=== PATIENT | male | born 1965 | race Two or more races ===

== ENCOUNTER 2023-07-02 12:53 | Inpatient (IN) | payer MEDICARE, OTHER ==
[~2023-07-02] VITALS: Ht 177.8 cm; Wt 101.2 kg
[2023-07-02] MEDS ORDERED: TERB30CR8 TP (15:00)
[2023-07-02] MEDS ORDERED: POVI3780 TP (15:00)
[2023-07-02] MEDS ORDERED: MULT-447 PO (15:00)
[2023-07-02] MEDS ORDERED: METO25TA3 PO (15:00)
[2023-07-02] MEDS ORDERED: APIX5TAB PO (15:00)
[2023-07-02] MEDS ORDERED: ASCO-352 PO (15:00)
[2023-07-02] MEDS ORDERED: METF-440 PO (15:00)
[2023-07-02] MEDS ORDERED: PRED20TA PO (15:00)
[2023-07-02] MEDS ORDERED: LEVE500T9 PO (15:00)
[2023-07-02] MEDS ORDERED: ACET-868 PO (15:00)
[2023-07-02] MEDS ORDERED: [UNRECOGNIZED DRUG - CODE] TP (15:00)
[2023-07-02] MEDS ORDERED: INSU100V27 SQ (15:00)
[2023-07-02] MEDS ORDERED: ZINC56.713 TP (15:00)
[2023-07-02] MEDS ORDERED: AMMO225L14 TP (15:00)
[2023-07-02] MEDS ORDERED: OMEP20CA15 PO (15:00)
[2023-07-02 16:47] LABS: BASOPHILS % (AUTO) 0.3 % (0.0-2.0); EOSINOPHILS # (AUTO) 0.1 K/uL (0.0-0.7); EOSINOPHILS % (AUTO) 1.1 % (0.0-6.0); HEMATOCRIT 36 % (39-51); LYMPHOCYTES # (AUTO) 1.7 K/uL (0.8-4.8); LYMPHOCYTES % (AUTO) 18.1 % (20.0-44.0); MEAN CORPUSCULAR HEMOGLOBIN 25 PG (26.0-33.0); MEAN CORPUSCULAR HGB CONC 31 g/dl (31.0-36.0); MEAN CORPUSCULAR VOLUME 82 fL (80-96); MONOCYTES # (AUTO) 0.9 K/uL (0.1-1.30); MONOCYTES % (AUTO) 9.7 % (2.0-12.0); NEUTROPHILS # (AUTO) 6.6 K/uL (1.8-8.9); NEUTROPHILS % (AUTO) 70.8 % (43.0-81.0); PLATELET COUNT (AUTO) 507 K/uL (150-450); RED BLOOD CELL COUNT(AUTO) 4.33 MIL/uL (4.5-6.0); RED CELL DISTRIBUTION WIDTH 19.3 % (11.5-15.0); WHITE BLOOD COUNT (AUTO) 9.4 K/uL (4.3-11.0)
[2023-07-02 17:05] LABS: ALANINE AMINOTRANSFERASE 52 U/L (12-78); ALBUMIN 2.7 g/dL (3.4-5.0); ALCOHOL, BLOOD < 3 mg/dL (0-10); ALKALINE PHOSPHATASE 87 U/L (46-116); ASPARTATE AMINOTRANSFERASE 28 U/L (15-37); BILIRUBIN,DIRECT 0.1 mg/dL (0.0-0.2); BILIRUBIN,TOTAL 0.4 mg/dL (0.2-1.0); CARBON DIOXIDE 27 mmol/L (21-32); CHLORIDE 101 mmol/L (98-107); CREATININE 0.8 mg/dL (0.6-1.3); GLUCOSE 91 mg/dL (74-106); POTASSIUM 3.2 mmol/L (3.5-5.1); SODIUM SERUM 138 mmol/L (136-145); TOTAL PROTEIN, SERUM 7.7 g/dL (6.4-8.2); UREA NITROGEN, BLOOD 10 mg/dL (7-18)
[2023-07-02 17:06] LABS: ACETAMINOPHEN 0 ug/ml (10-30); SALICYLATE 1.5 mg/dL (2.8-20.0)
[2023-07-02 20:46] LABS: APPEARANCE,URINE CLEAR (CLEAR); BILIRUBIN,URINE NEGATIVE (NEGATIVE); BLOOD, URINE TRACE-INTA Ery/uL (NEGATIVE); COLOR,URINE YELLOW (YELLOW); KETONES,URINE NEGATIVE (NEGATIVE); LEUKOCYTE ESTERASE ,URINE NEGATIVE (NEGATIVE); NITRITE, URINE NEGATIVE (NEGATIVE); PROTEIN,URINE NEGATIVE (NEGATIVE); UGLUCOSE NEGATIVE (NEGATIVE); UROBILINOGEN,URINE 0.2 EU/dL (0.2)
[2023-07-02 20:57] LABS: ADD URINE CULTURE NO; BACTERIA,URINE None seen /HPF (None Seen); SQUAMOUS EPITHELIAL CELL,UR 0-2 /HPF (None Seen); WBC,URINE 0-2 /HPF (0-3)
[2023-07-02 21:05] LABS: AMPHETAMINE, URINE NEGATIVE (NEGATIVE); BARBITURATE, URINE NEGATIVE (NEGATIVE); BENZODIAZEPINE, URINE NEGATIVE (NEGATIVE); CANNABINOID, URINE NEGATIVE (NEGATIVE); COCCAINE, URINE NEGATIVE (NEGATIVE); OPIATE, URINE NEGATIVE (NEGATIVE); PHENCYCLIDINE SCREEN,URINE NEGATIVE (NEGATIVE)
[2023-07-02] MEDS ORDERED: POTASSIUM CHLORIDE 20 MEQ TAB.PRT.SR PO ONE ×2 (22:00→22:15)
[2023-07-03] MEDS ORDERED: MAG HYDROX/AL HYDROX/SIMETH 30 ML UDC PO PRN (05:00)
[2023-07-03] MEDS ORDERED: MAGNESIUM HYDROXIDE 30 ML UDC PO PRN (05:00)
[2023-07-03] MEDS ORDERED: ZOLPIDEM TARTRATE 5 MG TABLET PO PRN (05:00)
[2023-07-03] MEDS ORDERED: LORAZEPAM 1 MG TABLET PO PRN (05:00)
[2023-07-03] MEDS ORDERED: ACETAMINOPHEN 325 MG TABLET PO PRN ×2 (05:00→11:00)
[2023-07-03] MEDS ORDERED: BLOOD SUGAR DIAGNOSTIC 1 EACH STRIP IN ONE (05:00)
[2023-07-03] MEDS ORDERED: INSULIN REGULAR, HUMAN 100 UNIT/ML 3 ML VIAL SQ PRN (06:00)
[2023-07-03] MEDS ORDERED: DEXTROSE 50%-WATER 50 ML DISP.SYRIN IV PRN (06:00)
[2023-07-03] MEDS: BLOOD SUGAR DIAGNOSTIC 1 EACH STRIP IN SCH ×4 (07:30→22:00)
[2023-07-03 08:00] VITALS: BP 146/82; TEMP 97.8; O2SAT 96
[2023-07-03] MEDS: ESCITALOPRAM OXALATE (10 MG) 10 MG TABLET PO SCH (12:19)
[2023-07-03 16:00] VITALS: BP 141/89; TEMP 98; O2SAT 95
[2023-07-03] MEDS: LEVETIRACETAM (250 MG) 250 MG TABLET PO SCH (17:15)
[2023-07-03] MEDS: METFORMIN 500 MG TABLET PO SCH (17:15)
[2023-07-03] MEDS: APIXABAN 5 MG TABLET PO SCH (17:16)
[2023-07-03] MEDS: ZINC OXIDE 56.7 GM TUBE TP SCH (21:12)
[2023-07-04] MEDS: BLOOD SUGAR DIAGNOSTIC 1 EACH STRIP IN SCH ×4 (07:30→22:00)
[2023-07-04] MEDS: PANTOPRAZOLE 40 MG TABLET.DR PO SCH (08:08)
[2023-07-04] MEDS ORDERED: predniSONE 20 MG TABLET PO SCH (09:00)
[2023-07-04] MEDS: LEVETIRACETAM (250 MG) 250 MG TABLET PO SCH ×2 (09:29→16:31)
[2023-07-04] MEDS: METFORMIN 500 MG TABLET PO SCH ×2 (09:29→16:31)
[2023-07-04] MEDS: ASCORBIC ACID 500 MG TABLET PO SCH (09:29)
[2023-07-04] MEDS: MULTIVIT W/MINERALS 1 TAB TABLET PO SCH (09:29)
[2023-07-04] MEDS: APIXABAN 5 MG TABLET PO SCH ×2 (09:32→16:33)
[2023-07-04] MEDS: AMMONIUM LACTATE 227 GM BOTTLE TP SCH (09:37)
[2023-07-04] MEDS: ZINC OXIDE 56.7 GM TUBE TP SCH ×2 (09:38→21:00)
[2023-07-04] MEDS: ESCITALOPRAM OXALATE (10 MG) 10 MG TABLET PO SCH (09:41)
[2023-07-04] MEDS: METOPROLOL SUCCINATE 25 MG TAB.SR.24H PO SCH (11:33)
[2023-07-04 16:00] VITALS: BP 140/85; TEMP 98; O2SAT 96
[2023-07-04] MEDS: MEMANTINE HCL 5 MG TABLET PO SCH (16:30)
[2023-07-04 20:16] VITALS: BP 150/75; TEMP 98; O2SAT 97
[2023-07-04] MEDS: DONEPEZIL 5 MG TABLET PO SCH (22:04)
[2023-07-05] MEDS: BLOOD SUGAR DIAGNOSTIC 1 EACH STRIP IN SCH ×4 (07:55→21:26)
[2023-07-05 08:00] VITALS: BP 117/54; TEMP 98.7; O2SAT 98
[2023-07-05] MEDS: PANTOPRAZOLE 40 MG TABLET.DR PO SCH (08:05)
[2023-07-05] MEDS: ASCORBIC ACID 500 MG TABLET PO SCH (08:16)
[2023-07-05] MEDS: MULTIVIT W/MINERALS 1 TAB TABLET PO SCH (08:16)
[2023-07-05] MEDS: MEMANTINE HCL 5 MG TABLET PO SCH ×2 (08:16→17:10)
[2023-07-05] MEDS: LEVETIRACETAM (250 MG) 250 MG TABLET PO SCH ×2 (08:16→17:10)
[2023-07-05] MEDS: METFORMIN 500 MG TABLET PO SCH ×2 (08:16→17:09)
[2023-07-05] MEDS: ESCITALOPRAM OXALATE (10 MG) 10 MG TABLET PO SCH (08:17)
[2023-07-05] MEDS: METOPROLOL SUCCINATE 25 MG TAB.SR.24H PO SCH (08:18)
[2023-07-05] MEDS: APIXABAN 5 MG TABLET PO SCH ×2 (08:21→17:11)
[2023-07-05] MEDS: ZINC OXIDE 56.7 GM TUBE TP SCH ×2 (09:00→20:43)
[2023-07-05] MEDS: AMMONIUM LACTATE 227 GM BOTTLE TP SCH (09:00)
[2023-07-05 16:00] VITALS: BP 138/79; TEMP 98.6; O2SAT 97
[2023-07-05] MEDS: DONEPEZIL 5 MG TABLET PO SCH (21:20)
[2023-07-06] MEDS: PANTOPRAZOLE 40 MG TABLET.DR PO SCH (07:45)
[2023-07-06 08:00] VITALS: BP 131/69; TEMP 98.2; O2SAT 100
[2023-07-06] MEDS: BLOOD SUGAR DIAGNOSTIC 1 EACH STRIP IN SCH ×4 (08:01→22:00)
[2023-07-06] MEDS: LEVETIRACETAM (250 MG) 250 MG TABLET PO SCH ×2 (08:44→17:04)
[2023-07-06] MEDS: METFORMIN 500 MG TABLET PO SCH ×2 (08:45→17:04)
[2023-07-06] MEDS: ASCORBIC ACID 500 MG TABLET PO SCH (08:45)
[2023-07-06] MEDS: MEMANTINE HCL 5 MG TABLET PO SCH ×2 (08:45→17:04)
[2023-07-06] MEDS: ESCITALOPRAM OXALATE (10 MG) 10 MG TABLET PO SCH (08:45)
[2023-07-06] MEDS: MULTIVIT W/MINERALS 1 TAB TABLET PO SCH (08:45)
[2023-07-06] MEDS: METOPROLOL SUCCINATE 25 MG TAB.SR.24H PO SCH (08:46)
[2023-07-06] MEDS: APIXABAN 5 MG TABLET PO SCH ×2 (08:47→17:05)
[2023-07-06] MEDS: AMMONIUM LACTATE 227 GM BOTTLE TP SCH (08:47)
[2023-07-06] MEDS: ZINC OXIDE 56.7 GM TUBE TP SCH ×2 (08:48→21:52)
[2023-07-06 16:00] VITALS: BP 133/96; TEMP 98.1; O2SAT 97
[2023-07-06 19:43] VITALS: TEMP 97.8
[2023-07-06] MEDS: DONEPEZIL 5 MG TABLET PO SCH (22:00)
[2023-07-07] MEDS: BLOOD SUGAR DIAGNOSTIC 1 EACH STRIP IN SCH ×4 (07:30→22:00)
[2023-07-07 08:00] VITALS: BP 135/85; TEMP 97.7; O2SAT 97
[2023-07-07] MEDS: ASCORBIC ACID 500 MG TABLET PO SCH (08:24)
[2023-07-07] MEDS: METOPROLOL SUCCINATE 25 MG TAB.SR.24H PO SCH (08:26)
[2023-07-07] MEDS: LEVETIRACETAM (250 MG) 250 MG TABLET PO SCH ×2 (08:26→17:24)
[2023-07-07] MEDS: PANTOPRAZOLE 40 MG TABLET.DR PO SCH (08:28)
[2023-07-07] MEDS: METFORMIN 500 MG TABLET PO SCH ×2 (08:28→17:24)
[2023-07-07] MEDS: APIXABAN 5 MG TABLET PO SCH ×2 (08:28→17:25)
[2023-07-07] MEDS: ESCITALOPRAM OXALATE (10 MG) 10 MG TABLET PO SCH (08:28)
[2023-07-07] MEDS: MEMANTINE HCL 5 MG TABLET PO SCH ×2 (08:28→17:24)
[2023-07-07] MEDS: MULTIVIT W/MINERALS 1 TAB TABLET PO SCH (08:28)
[2023-07-07] MEDS: AMMONIUM LACTATE 227 GM BOTTLE TP SCH (09:00)
[2023-07-07] MEDS: ZINC OXIDE 56.7 GM TUBE TP SCH ×2 (09:00→21:09)
[2023-07-07 16:00] VITALS: BP 130/84; TEMP 98.7; O2SAT 98
[2023-07-07 20:19] VITALS: BP 128/81; TEMP 98; O2SAT 96
[2023-07-07] MEDS: DONEPEZIL 5 MG TABLET PO SCH (21:08)
[2023-07-08] MEDS: BLOOD SUGAR DIAGNOSTIC 1 EACH STRIP IN SCH ×4 (07:30→21:31)
[2023-07-08 08:00] VITALS: BP 119/71; TEMP 98.6; O2SAT 96
[2023-07-08] MEDS: PANTOPRAZOLE 40 MG TABLET.DR PO SCH (08:17)
[2023-07-08] MEDS: METFORMIN 500 MG TABLET PO SCH ×2 (08:18→16:55)
[2023-07-08] MEDS: LEVETIRACETAM (250 MG) 250 MG TABLET PO SCH ×2 (08:18→16:56)
[2023-07-08] MEDS: ESCITALOPRAM OXALATE (10 MG) 10 MG TABLET PO SCH (08:18)
[2023-07-08] MEDS: ASCORBIC ACID 500 MG TABLET PO SCH (08:19)
[2023-07-08] MEDS: METOPROLOL SUCCINATE 25 MG TAB.SR.24H PO SCH (08:19)
[2023-07-08] MEDS: MEMANTINE HCL 5 MG TABLET PO SCH ×2 (08:19→16:55)
[2023-07-08] MEDS: MULTIVIT W/MINERALS 1 TAB TABLET PO SCH (08:19)
[2023-07-08] MEDS: ZINC OXIDE 56.7 GM TUBE TP SCH ×2 (08:28→21:10)
[2023-07-08] MEDS: AMMONIUM LACTATE 227 GM BOTTLE TP SCH (08:29)
[2023-07-08] MEDS: APIXABAN 5 MG TABLET PO SCH ×2 (09:00→16:55)
[2023-07-08 16:00] VITALS: BP 104/77; TEMP 97.9; O2SAT 96
[2023-07-08 20:00] VITALS: BP 121/75; TEMP 98.4; O2SAT 98
[2023-07-08] MEDS: DONEPEZIL 5 MG TABLET PO SCH (21:10)
[2023-07-09] MEDS: BLOOD SUGAR DIAGNOSTIC 1 EACH STRIP IN SCH ×2 (07:30→12:00)
[2023-07-09 08:00] VITALS: BP 115/65; TEMP 97.8; O2SAT 94
[2023-07-09 09:08] VITALS: BP 115/65
[2023-07-09] MEDS: ESCITALOPRAM OXALATE (10 MG) 10 MG TABLET PO SCH (09:08)
[2023-07-09] MEDS: METFORMIN 500 MG TABLET PO SCH (09:08)
[2023-07-09] MEDS: LEVETIRACETAM (250 MG) 250 MG TABLET PO SCH (09:08)
[2023-07-09] MEDS: MULTIVIT W/MINERALS 1 TAB TABLET PO SCH (09:08)
[2023-07-09] MEDS: METOPROLOL SUCCINATE 25 MG TAB.SR.24H PO SCH (09:08)
[2023-07-09] MEDS: MEMANTINE HCL 5 MG TABLET PO SCH (09:09)
[2023-07-09] MEDS: APIXABAN 5 MG TABLET PO SCH (09:09)
[2023-07-09] MEDS: PANTOPRAZOLE 40 MG TABLET.DR PO SCH (09:09)
[2023-07-09] MEDS: ASCORBIC ACID 500 MG TABLET PO SCH (09:09)
[2023-07-09] MEDS: ZINC OXIDE 56.7 GM TUBE TP SCH (12:17)
[2023-07-09] MEDS: AMMONIUM LACTATE 227 GM BOTTLE TP SCH (12:18)
== END 2023-07-09 15:00 | DRG 885 ==
LOC: ER 12:53 → GPS 07-03 01:27
PROVIDERS: ADMIT Psychiatry & Neurology Psychiatry; ATTEND Nurse Practitioner Acute Care
DX: F29 Unspecified psychosis not due to a substance or known physiological condition (principal); E44.0 Moderate protein-calorie malnutrition; F03.92 Unspecified dementia, unspecified severity, with psychotic disturbance; F03.93 Unspecified dementia, unspecified severity, with mood disturbance; E78.5 Hyperlipidemia, unspecified; E66.9 Obesity, unspecified; E87.6 Hypokalemia; E88.09 Other disorders of plasma-protein metabolism, not elsewhere classified; G40.909 Epilepsy, unspecified, not intractable, without status epilepticus; F39 Unspecified mood [affective] disorder; Z68.32 Body mass index [BMI] 32.0-32.9, adult; I10 Essential (primary) hypertension; E11.9 Type 2 diabetes mellitus without complications; Z20.822 Contact with and (suspected) exposure to COVID-19; K21.9 Gastro-esophageal reflux disease without esophagitis; Z79.899 Other long term (current) drug therapy
CPT/HCPCS: 36415; 70450-TC; 80048-TC; 80076-TC; 81001; 82962-TC; 85025-TC; 87081-TC; 97110-TC; 97116-TC; 97530-TC; C9803; G0480; J1815